=== PATIENT | male | born 1985 | race Caucasian/White ===

== ENCOUNTER 2021-11-15 11:04 | Emergency (ER) | payer OTHER, BC, SELFPAY ==
[2021-11-15 11:06] VITALS: BP 187/118; PULSE 98; RESP 18; TEMP 36.6; O2SAT 98; BMI 34.3
[2021-11-15] MEDS: fentaNYL 100 MCG/2 ML Ampul 50 MCG IV (11:16)
[2021-11-15] MEDS: Ondansetron 4 MG/2 ML Vial IV (11:16)
[2021-11-15] MEDS: 0.9% Normal Saline 1,000 ML 1000 ML IV (11:17)
[2021-11-15] MEDS: Diphth,Pertuss(Acell),Tet Vac 0.5 ML Vial IM (11:24)
[2021-11-15 11:25] VITALS: BP 194/99; PULSE 99; RESP 16; O2SAT 98
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
[2021-11-15 11:31] LABS: Absolute Lymphocyte Count 2.66 X10^3/uL (0.83-4.51); Absolute Neutrophil Count 4.6 X10^3/uL (2.0-7.7); Basophil# 0.02 X10^3/uL; Basophil% 0.2 % (0-1); Eosinophil# 0.09 X10^3/uL; Eosinophils% 1.1 % (0-5); Hematocrit 44.6 % (40-54); Hemoglobin 15.1 g/dL (13.0-16.5); Lymphocyte # 2.66 X10^3/ul (0.83-4.51); Lymphocyte % 33.2 % (19-41); Mean Corp Hgb Conc 33.9 g/dL (32-36); Mean Corpuscular Hgb 30.3 pg (27.0-32.0); Mean Corpuscular Volume 89.6 fL (80-94); Mean Platelet Vol. 10.9 fl (6.2-12.0); Monocyte# 0.59 X10^3/uL; Monocyte% 7.4 % (0-10); NRBC Flagged by Analyzer 0 % (0-5); Neutrophil # 4.63 X10^3/uL (2.7-7.7); Neutrophil % 57.9 % (47-70); Platelet Count 258 K/mm3 (150-450); RBC Distribution Width CV 12.7 % (11.6-14.6); RBC Distribution Width SD 41.8 fl (35.1-43.9); Red Blood Count 4.98 M/mm3 (4.6-6.2)
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
[2021-11-15] MEDS: Lactated Ringers 1,000 ML 250 ML IV (11:34)
[2021-11-15] MEDS: HYDROmorphone 0.5 MG/0.5 ML SYRINGE IV (11:34)
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
[2021-11-15 11:36] VITALS: BP 206/104; PULSE 88; RESP 18; O2SAT 99
[2021-11-15 11:36] LABS: International Normalized Ratio 0.9; Prothrombin Time (Protime)PT. 12.2 SECONDS (11.7-14.9)
[2021-11-15 11:37] LABS: Partial Thromboplast Time 27.1 Seconds (24.1-36.2)
[2021-11-15 11:47] VITALS: BP 189/95; PULSE 82; RESP 18; O2SAT 99
[2021-11-15 11:51] LABS: Anion Gap 7 (5-15); BUN 10 mg/dL (7-18); BUN/Creat Ratio 12.7 RATIO (10-20); Calcium,Total 8.9 mg/dL (8.5-10.1); Chloride 112 mmol/L (98-107); Creatinine, Serum 0.79 mg/dL (0.70-1.30); EST Glomerular Filtration Rate 118 mL/min (>60); Est Glom Filt Rate - Afr Amer 142 mL/min (>60); Estimated Creatinine Clearance 125.06 ml/min; Glucose 99 mg/dL (74-106); Potassium 3.8 mmol/L (3.5-5.1); Sodium Level 141 mmol/L (136-145)
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
== END 2021-11-15 12:01 | disposition short-term general hospital (02) ==
PROVIDERS: Emergency Provider Emergency Medicine; Visit Provider Emergency Medicine
DX: T65.91XA Toxic effect of unspecified substance, accidental (unintentional), initial encounter (principal); T20.20XA Burn of second degree of head, face, and neck, unspecified site, initial encounter; T22.211A Burn of second degree of right forearm, initial encounter; T22.212A Burn of second degree of left forearm, initial encounter; T23.201A Burn of second degree of right hand, unspecified site, initial encounter; T23.202A Burn of second degree of left hand, unspecified site, initial encounter; T31.10 Burns involving 10-19% of body surface with 0% to 9% third degree burns; Z23 Encounter for immunization; Y92.89 Other specified places as the place of occurrence of the external cause; Y99.0 Civilian activity done for income or pay; F17.210 Nicotine dependence, cigarettes, uncomplicated
CPT/HCPCS: 71045; 80048; 85025; 85610; 85730; 90715; 96374; 96375; 99285; J7030; J7120; J2405